=== PATIENT | male | born 1960 | race Caucasian/White ===

== ENCOUNTER 2020-01-24 16:39 | Emergency (ER) | payer BC ==
--- OUTSIDE RECORDS SUMMARY | 2020-01-24 16:43 | XMS REPORT | Continuity of Care Document ---
:1960 Author Organization [facility] Care Team Providers Name Role Phone [facility] Unavailable Un available Problems Problem Status Onset Classification Date Comments Sourc e Date Reported CHEST PAIN Active [facility] 4 Medications Medication Details Route Status Patient Ordering Order Source Instructions Provider Date Saline Flush 5 ml, Route: No MH 0.9% IVP, Drug [facility] Form: INJ, Active Dosing Weight 103.182, kg, Q12H, Start date: 11/04/13 21:00:00, Duration: 30 day, Stop date: 12/04/13 9:00:00(Same as: BD Posiflush) atropine 0.5 mg, 5 No MH mL, Route: [facility] IVP, Drug Active form: INJ, PRN, PRN Bradycardia, Start date: 11/04/13 20:18:00, Duration: 30 day, Stop date: 12/04/13 20:17:00 Saline Flush 5 ml, Route: No MH 0.9% IVP, Drug [facility] Form: INJ, Active Dosing Weight 103.182, kg, PRN, PRN Line Flush, Start date: 11/04/13 20:11:00, Duration: 30 day, Stop date: 12/04/13 20:10:00(Yunior e as: BD Posiflush) Nitroglycerin 0.4 mg, 1 No MH tab, Route: [facility] SL, Drug Active form: TAB, Q5Min, Dosing Weight 103.182, kg, PRN Chest Pain, Start date: 11/04/13 20:11:00, Duration: 3 doses or times, Stop date: Limited # of times(Same as:Nitroquic k, Nitrostat) "Do Not Crush" Sublingual tablet Allergies, Adverse Reactions, Alerts No Known Medication Allergies Immunizations No Data Provided for This Section Results Order Name Results Value Reference Date Interpretation Comments Parisa rce Range CARDIAC Total CK 104 12 - 191 ENZYMES 014 [facility] CARDIAC Troponin-I <0.02 0.00 - 0.40 ENZYMES 014 [facility] CARDIAC CK-MB <0.5 0.0 - 2.5 ENZYMES INDEX 014 [facility] CARDIAC CK MB <0.5 0.5 - 3.6 MH ENZYMES 014 [facility] CARDIAC CK-MB <0.3 0.0 - 2.5 ENZYMES INDEX 014 [facility] CARDIAC Troponin-I <0.02 0.00 - 0.40 ENZYMES 014 [facility] CARDIAC CK MB <0.5 0.5 - 3.6 ENZYMES 014 [facility] CARDIAC Total CK 151 12 - 191 ENZYMES 014 [facility] Pathology Reports No Data Provided for This Section Diagnostic Reports No Data Provided for This Section Consultation Notes No Data Provided for This Section Discharge Summaries No Data Provided for This Section History and Physicals No Data Provided for This Section Vital Signs Vital Sign Value Date Comments Source Systolic (mm Hg) 130 11/05/2013 [facility] [facility] Diastolic (mm Hg) 82 11/05/[address] [facility] st Temperature Oral (F) 97.8 F 11/05/2013 [facility] 65 11/05/2013 [facility] Rate 18 11/05/2013 [facility] Temperature Oral (F) 98.4 F 11/05/2013 [facility] Rate 66 11/05/2013 [facility] Rate 18 11/05/2013 [facility] Systolic (mm Hg) 130 11/05/2013 [facility] [facility] Diastolic (mm Hg) 74 11/05/[address] Diastolic (mm Hg) 77 11/05/[address] Systolic (mm Hg) 131 11/05/2013 [facility] Heart Rate 60 11/05/2013 [facility] Rate 18 11/05/2013 [facility] Temperature Oral (F) 98.0 F 11/05/2013 [facility] Weight 102.301 11/05/2013 [facility] BMI Calculated 35.32 11/05/2013 [facility] Height 170.18 cm 11/05/2013 [facility] BMI Calculated 35.63 11/05/2013 [facility] Height 170.18 cm 11/05/2013 [facility] Weight 103.182 11/05/2013 [facility] Encounters Location Location Encounter Encounter Reason Attending ADM DC Stat us Source Details Type Number For Provider Date Date Visit [facility] [id number] _MAPID: Nisheeth 11/05 11/05 T[facility] [id number] CHELSIE [place] /2013 [facility] [place] [facility] Patient [id number] [facility]38 Procedures No Data Provided for This Section Assessment and Plan No Data Provided for This Section Plan of Care No Data Provided for This Section Social History No Data Provided for This Section Family History No Data Provided for This Section Advance Directives No Data Provided for This Section Functional Status No Data Provided for This Section
[2020-01-24] MEDS ORDERED: ONDANSETRON 4 MG/2 ML VIAL ONE (18:58)
[2020-01-24] MEDS ORDERED: MORPHINE 4 MG/ML SYR ONE (18:58)
[2020-01-24] MEDS ORDERED: CEFAZOLIN/SWI 1gm 1 GM/10 ML SYR ONE (18:58)
[2020-01-24 19:04] LABS: Absolute Lymphocytes (CBC) 1.7 K/uL (0.7-4.9); Basophils % 0.8 % (0-1.3); Lymphocytes % 14.9 % (15.3-44.8); MPV 9.6 fL (7.6-11.3)
[2020-01-24 19:18] LABS: BUN Blood Urea Nitrogen 25 mg/dL (7-18); Bicarbonate 27 mmol/L (21-32); Glucose Level 104 mg/dL (74-106); Potassium 4.3 mmol/L (3.5-5.1); Sodium Level 141 mmol/L (136-145)
--- NOTE | 2020-01-24 19:32 | EDPHYS ---
Physician Documentation [facility] Name: Aram Mitchell Age: 59 yrs Sex: Male : 1960 Arrival Date: 01/24/2020 Time: 16:44 Bed 2 Private MD: ED Physician Sergo Gagnon HPI: 01/23 19:23 This 59 yrs old Male presents to ER via Ambulatory with complaints of Hand kb Injury. 19:23 The patient or guardian reports decreased range of motion, injury, pain, swelling, kb tenderness. The complaints affect the left index finger. Context: The problem was sustained at home, outdoors, resulted from finger went into a diesel fuel line spray. Onset: The symptoms/episode began/occurred yesterday. Modifying factors: The symptoms are alleviated by ice/coldpack to affected area, the symptoms are aggravated by movement. The patient has not experienced similar symptoms in the past. The patient has been recently seen by a physician: the ER physician, out of Town, with similar presenting complaints, X-rays were performed. 19:41 Associated signs and symptoms: The patient has no apparent associated signs or kb symptoms. Severity of symptoms: At their worst the symptoms were severe, in the emergency department the symptoms are unchanged. Pt reports he was working on his truck and a diesel fuel line that contains 20-30,000 psi was spraying. States second digit of left hand hit the sprayer. Has had pain and swelling since yesterday. Went to [facility] last night, x-ray was negative and they said there was nothing to do for it. Came in today because the swelling and pain has gotten worse, now it is developing areas of white, blisters, and he cannot bend it. . Historical: - Allergies: 16:59 steroids; ll1 - PSHx: 16:59 None; ll1 - Immunization history:: Flu vaccine is not up to date. - Social history:: Smoking status: Patient denies any tobacco usage or history of. Patient/guardian denies using alcohol, street drugs, IV drugs, tobacco products. ROS: 19:20 Constitutional: Negative for fever, chills, and weight loss, Cardiovascular: Negative kb for chest pain, palpitations, and edema, Respiratory: Negative for shortness of breath, cough, wheezing, and pleuritic chest pain, Abdomen/GI: Negative for abdominal pain, nausea, vomiting, diarrhea, and constipation, Back: Negative for injury and pain, Neuro: Negative for headache, weakness, numbness, tingling, and seizure. 19:20 MS/extremity: Positive for injury or acute deformity, decreased range of motion, erythema, pain, swelling, tenderness, of the left index finger. Exam: 19:20 Constitutional: This is a well developed, well nourished patient who is awake, alert, kb and in no acute distress. Head/Face: Normocephalic, atraumatic. Chest/axilla: Normal chest wall appearance and motion. Nontender with no deformity. No lesions are appreciated. Cardiovascular: Regular rate and rhythm with a normal S1 and S2. No gallops, murmurs, or rubs. Normal PMI, no JVD. No pulse deficits. Respiratory: Lungs have equal breath sounds bilaterally, clear to auscultation and percussion. No rales, rhonchi or wheezes noted. No increased work of breathing, no retractions or nasal flaring. Abdomen/GI: Soft, non-tender, with normal bowel sounds. No distension or tympany. No guarding or rebound. No evidence of tenderness throughout. Neuro: Awake and alert, GCS 15, oriented to person, place, time, and situation. Cranial nerves II-XII grossly intact. Motor strength 5/5 in all extremities. Sensory grossly intact. Cerebellar exam normal. Normal gait. 19:20 Musculoskeletal/extremity: Extremities: grossly normal except: noted in the left index finger: decreased ROM, erythema, pain, swelling, tenderness, cool to touch, pale, fusiform swelling, There is no evidence of FA involvement, ROM: limited active range of motion, in the left index finger, Perfusion: the extremity is cool, pale, noted to have sluggish capillary refill, left second digit only, Sensation intact. Vital Signs: 16:56 BP 171 / 91; Pulse 72; Resp 18; Temp 98.1; Pulse Ox 96% ; Weight 92.08 kg; Height 5 ft. ll1 7 in. (170.18 cm); Pain 9/10; 19:50 BP 185 / 89; Pulse 80; Resp 16; Pulse Ox 98% ; rr5 21:00 BP 166 / 85; Pulse 70; Resp 19; Pulse Ox 99% ; rr5 21:45 BP 178 / 95; Pulse 75; Resp 17; Pulse Ox 99% ; rr5 16:56 Body Mass Index 31.79 (92.08 kg, 170.18 cm) ll1 MDM: 18:28 Patient medically screened. kb 18:55 ED course: Transfer initiated by me to [facility]. . kb 19:05 ED course: Accepted for transfer to [facility], keep NPO, needs surgery. . rn 19:19 Data reviewed: vital signs, nurses notes. Data interpreted: Pulse oximetry: on room air kb is 96 %. Interpretation: normal. Counseling: I had a detailed discussion with the patient and/or guardian regarding: the historical points, exam findings, and any diagnostic results supporting the discharge/admit diagnosis, the need to transfer to another facility, for higher level of care, [facility] does not immediately have the required specialist. 19:30 ED course: Dr Segovia (hospitalist at [facility]) accepts pt for transfer. Dr yin Iqbal (hand specialist) accepts pt for consult. . 01/23 18:44 Order name: CBC with Diff; Complete Time: 19:17 kb 01/23 18:44 Order name: Basic Metabolic Panel; Complete Time: 19:19 kb 01/23 18:44 Order name: IV Start; Complete Time: 18:54 kb Administered Medications: 19:05 Drug: Ancef 1 grams Route: IVPB; Site: right antecubital; iw 20:57 Follow up: Response: No adverse reaction; IV Status: Completed infusion mg2 19:05 Drug: morphine 4 mg Route: IVP; Site: right antecubital; iw 20:57 Follow up: Response: No adverse reaction mg2 19:05 Drug: Zofran (Ondansetron) 4 mg Route: IVP; Site: right antecubital; iw 20:57 Follow up: Response: No adverse reaction mg2 20:57 Drug: Tetanus-Diphtheria Toxoid Adult 0.5 ml {Printmaker: [employer]). Exp: mg2 10/04/2021. Lot #: [id number]. } Route: IM; Site: right deltoid; 20:57 Follow up: Response: No adverse reaction mg2 21:49 Drug: fentaNYL (PF) 25 mcg {Note: rass 0.} Route: IVP; Site: right antecubital; rr5 21:49 Follow up: Response: Other; given upon transfer rr5 Disposition: 01/24 07:10 Co-signature as Attending Physician, Sergo Gagnon MD. rn Disposition: 01/24/20 19:31 Transfer ordered to [facility]. Diagnosis is High Pressure Injection Injury of second digit of left hand. - Reason for transfer: Higher level of care. - Accepting physician is Dr Segovia. - Condition is Stable. - Problem is new. - Symptoms are unchanged. Signatures: Dispatcher [employer] EDMS Isela Taylor, CIGARET[employer] LIGHTER REPAIRER-C CIGARET[employer] LIGHTER REPAIRER-Ckb eL Watson, RN RN iw Sergo Gagnon MD MD rn Gardose, Michele, RN RN mg2 Jose Raul Davis RN RN rr5 Connor Zepeda RN RN ll1 Corrections: (The following items were deleted from the chart) 01/23 19:06 19:05 ED course: Accepted by Dr. Mitchell, keep NPO, needs surgery. . rn rn 21:54 19:31 01/24/2020 19:31 Transfer ordered to [facility]. rr5 Diagnosis is High Pressure Injection Injury of second digit of left hand. Reason for transfer: Higher level of care. Accepting physician is Dr Segovia. Condition is Stable. Problem is new. Symptoms are unchanged. kb
--- NOTE | 2020-01-24 19:32 | ER ---
Nurse's Notes [facility] Name: Aram Mitchell Age: 59 yrs Sex: Male : 1960 Arrival Date: 01/24/2020 Time: 16:44 Bed 2 Private MD: Diagnosis: High Pressure Injection Injury of second digit of left hand Presentation: 01/23 16:56 Chief complaint: Patient states: High pressure diesel shot into left hand 2nd digit ll1 yesterday. Blister and swelling initially. X-ray negative at doctors office. Site is more red and swollen today. No fever. Coronavirus screen: Proceed with normal triage. Patient denies a cough. Patient denies shortness of breath or difficulty breathing. Patient denies measured and/or subjective temperature greater than 100.4F prior to today's visit. Patient denies travel on a cruise ship or to a country the [facility] currently lists as an affected area. Patient denies contact with known and/or suspected case of COVID-19. Ebola Screen: Patient denies travel to an Ebola-affected area in the 21 days before illness onset. Initial Sepsis Screen: Does the patient meet any 2 criteria? No. Patient's initial sepsis screen is negative. Does the patient have a suspected source of infection? No. Patient's initial sepsis screen is negative. Risk Assessment: Do you want to hurt yourself or someone else? Patient reports no desire to harm self or others. Onset of symptoms was January 23, 2020. 16:56 Method Of Arrival: Ambulatory ll1 16:56 Acuity: GUNNAR 3 ll1 Triage Assessment: 19:10 Injury Description: swelling. rr5 Historical: - Allergies: 16:59 steroids; ll1 - PSHx: 16:59 None; ll1 - Immunization history:: Flu vaccine is not up to date. - Social history:: Smoking status: Patient denies any tobacco usage or history of. Patient/guardian denies using alcohol, street drugs, IV drugs, tobacco products. Screenin:40 Abuse screen: Denies threats or abuse. Denies injuries from another. Nutritional iw screening: No deficits noted. Tuberculosis screening: No symptoms or risk factors identified. Fall Risk None identified. Assessment: 18:40 General: Appears in no apparent distress. Behavior is calm, cooperative. Pain: iw Complains of pain in dorsal aspect of distal phalanx of left ring finger, dorsal aspect of middle phalanx of left ring finger, dorsal aspect of proximal phalanx of left ring finger, palmar aspect of distal phalanx of left index finger, palmar aspect of middle phalanx of left index finger and palmar aspect of proximal phalanx of left index finger. Neuro: Level of Consciousness is awake, alert, obeys commands, Oriented to person, place, time, situation, Moves all extremities. Cardiovascular: Patient's skin is warm and dry. Respiratory: Respiratory effort is even, unlabored, Respiratory pattern is regular, symmetrical. GI: Derm: Skin is intact, is healthy with good turgor. Musculoskeletal: Range of motion: limited in DIP of left index finger and PIP of left index finger Swelling present in dorsal aspect of distal phalanx of left index finger, dorsal aspect of middle phalanx of left index finger, dorsal aspect of proximal phalanx of left index finger, palmar aspect of distal phalanx of left ring finger, palmar aspect of middle phalanx of left ring finger and palmar aspect of proximal phalanx of left ring finger. 19:50 Reassessment: Patient appears in no apparent distress at this time. No changes from rr5 previously documented assessment. Patient and/or family updated on plan of care and expected duration. Pain level reassessed. Patient is alert, oriented x 3, equal unlabored respirations, skin warm/dry/pink. 20:49 Reassessment: Patient appears in no apparent distress at this time. report given to lo Turk of [facility]. 21:51 Reassessment: Patient appears in no apparent distress at this time. Patient is alert, rr5 oriented x 3, equal unlabored respirations, skin warm/dry/pink. endorsed to EMS, awake, alert vitally stable , no complaints made. Vital Signs: 16:56 BP 171 / 91; Pulse 72; Resp 18; Temp 98.1; Pulse Ox 96% ; Weight 92.08 kg; Height 5 ft. ll1 7 in. (170.18 cm); Pain 9/10; 19:50 BP 185 / 89; Pulse 80; Resp 16; Pulse Ox 98% ; rr5 21:00 BP 166 / 85; Pulse 70; Resp 19; Pulse Ox 99% ; rr5 21:45 BP 178 / 95; Pulse 75; Resp 17; Pulse Ox 99% ; rr5 16:56 Body Mass Index 31.79 (92.08 kg, 170.18 cm) ll1 ED Course: 16:44 Patient arrived in ED. fj1 16:59 Triage completed. ll1 17:00 Arm band placed on. ll1 18:28 Isela [facility] FNP-C [facility]. kb 18:28 Sergo Gagnon MD is Attending Physician. kb 18:37 Le Watson, NAOMI is Primary Nurse. iw 18:40 Patient has correct armband on for positive identification. iw 18:52 Initial lab(s) drawn, by me, sent to lab. Inserted saline lock: 20 gauge in right dh3 antecubital area, using aseptic technique. Blood collected. 19:04 connected the hand surgeon director of business operations for [facility] with Dr. Gagnon for patient eb transfer consultation. 19:52 Delmy Cabrera, transferring coordinator gave room number and approval time. Accepting tt3 physician is Dr. Irina Segovia. Pt going to room 1615. Report to be called to [phone]. 21:49 No provider procedures requiring assistance completed. Patient transferred, IV remains rr5 in place. intact, No redness/swelling at site. Administered Medications: 19:05 Drug: Ancef 1 grams Route: IVPB; Site: right antecubital; iw 20:57 Follow up: Response: No adverse reaction; IV Status: Completed infusion mg2 19:05 Drug: morphine 4 mg Route: IVP; Site: right antecubital; iw 20:57 Follow up: Response: No adverse reaction mg2 19:05 Drug: Zofran (Ondansetron) 4 mg Route: IVP; Site: right antecubital; iw 20:57 Follow up: Response: No adverse reaction mg2 20:57 Drug: Tetanus-Diphtheria Toxoid Adult 0.5 ml {Motion Graphics Artist: [employer]. Exp: mg2 10/04/2021. Lot #: [id number]. } Route: IM; Site: right deltoid; 20:57 Follow up: Response: No adverse reaction mg2 21:49 Drug: fentaNYL (PF) 25 mcg {Note: rass 0.} Route: IVP; Site: right antecubital; rr5 21:49 Follow up: Response: Other; given upon transfer rr5 Intake: Outcome: 19:31 ER care complete, transfer ordered by MD. esqueda 21:49 Transferred by ground EMS to [facility], [facility] [place], Transfer form completed. rr5 21:49 Condition: stable 21:49 Instructed on the need for transfer. 21:54 Patient left the ED. rr5 Signatures: Isela Taylor, POLISHER BRASS-C POLISHER BRASS-Le Niño, RN RN Ashley Chacon 3 Tran Ni Michele, RN RN [facility] Jose Raul Davis RN RN rr5 Arthur Franklin fj1 Connor Zepeda RN RN ll1 Cononr Mcfarland tt3 Corrections: (The following items were deleted from the chart) 18:44 16:56 Chief complaint: Patient states: High pressure diesel shot into left hand 2nd ll1 digit. Blister and swelling initially. X-ray negative. Site is more red and swollen today. No fever ll1
[2020-01-24] MEDS ORDERED: TETANUS & DIPHTHERIA TOX,ADULT 0.5 ML VIAL ONE (20:37)
[2020-01-24] MEDS ORDERED: FENTANYL CITR 100 MCG/2 ML ONE (20:38)
[2020-01-24 22:04] VITALS: TEMP 98.1
[2020-01-24 22:07] VITALS: O2SAT 99
[2020-01-24 22:09] VITALS: BP 178/95
[2020-02-02] MEDS ORDERED: IBUPROFEN 400 MG TAB ONE (18:48)
== END 2020-01-24 21:54 | disposition short-term general hospital (02) ==
LOC: ER 16:39
DX: S69.92XA Unspecified injury of left wrist, hand and finger(s), initial encounter (principal); T70.4XXA Effects of high-pressure fluids, initial encounter; X58.XXXA Exposure to other specified factors, initial encounter; Y92.018 Other place in single-family (private) house as the place of occurrence of the external cause
CPT/HCPCS: 96365; 85025; 80048; 36415; 90471; 90714; 96375; 99285; 96366; J3010; J0690; J2405

== ENCOUNTER 2024-06-11 10:40 | Day surgery (SDC) | payer BC ==
[2024-06-04 15:25] LABS: Absolute Eosinophils 0.3 K/uL (0-0.5); Absolute Lymphocytes (CBC) 1.5 K/uL (0.7-4.9); Absolute Monocytes 0.8 K/uL (0.1-1.3); Absolute Neutrophil 3.8 K/uL (1.8-8.0); Basophils % 0.7 % (0-1.3); Eosinophils % 4.1 % (0-4.4); Hematocrit 43.4 % (39.6-49.0); Hemoglobin 14.4 g/dL (13.6-17.9); Lymphocytes % 23.1 % (15.3-44.8); MCH 30.6 pg (27.0-35.0); MCHC 33.2 g/dL (32.0-36.0); MCV 92.2 fL (80-100); MPV 9.4 fL (7.6-11.3); Monocytes % 12.5 % (3.3-12.3); Neutrophils % 59.6 % (41.7-73.7); Platelets 161 thou/uL (152-406); RBC Red Blood Cell Count 4.71 M/uL (4.33-5.43); Red Cell Distribution Width 13.8 % (12.1-15.2)
[2024-06-04 15:26] LABS: PT Prothrombin Time 11.5 SECONDS (9.4-12.5); Protime INR 1.03
[2024-06-04 15:37] LABS: Anion Gap 7.1 mEq/L (5.0-15.0); Potassium 4.1 mEq/L (3.5-5.1)
[2024-06-11] MEDS: Ringers Lactate 1,000 ML IV ONE (11:35)
[2024-06-11] MEDS ORDERED: Gentamicin Inj 240 MG in NA CHLORIDE 0.9% 100 ML IV ONE (14:15)
[2024-06-11] MEDS ORDERED: FENTANYL CITR 250 MCG/5 ML ONE (15:40)
[2024-06-11] MEDS ORDERED: propofoL 200 MG/20 ML VIAL IV ONE (15:40)
[2024-06-11] MEDS ORDERED: ONDANSETRON 4 MG/2 ML VIAL ONE (15:40)
[2024-06-11] MEDS ORDERED: MIDAZOLAM HCL 2 MG/2 ML INJ ONE (15:40)
[2024-06-11] MEDS ORDERED: LIDOCAINE 1% MPF 5 ML VIAL ONE (15:40)
[2024-06-11] MEDS: AMPICILLIN SODIUM 2 GM/VIAL VIAL ONE (16:05)
[2024-06-11] MEDS ORDERED: GLYCOPYRROLATE 0.2 MG/ML SYR ONE (16:26)
[2024-06-11] MEDS ORDERED: HYDROCODONE/APAP 5/325 MG TAB PO PRN (17:27)
[2024-06-11] MEDS ORDERED: OXYBUTYNIN ER 5 MG TAB PO ONE (17:27)
[2024-06-11] MEDS ORDERED: PHENAZOPYRIDINE 100MG TAB PO ONE (17:27)
--- NOTE | 2024-06-11 17:34 | P.OP ---
Date of Service: 06/11/24 Preoperative diagnosis: BPH with LUTS Postoperative diagnosis: BPH with LUTS Principal procedure: Bipolar TURP (transurethral resection of the prostate) Indication for procedure: 64-year-old gentleman with LUTS refractory to medical therapy who has elected to proceed with surgical therapy for a slightly larger than 100 g gland. Procedure note: The patient was consented in the preoperative holding area before being transferred to the operative suite where general anesthesia was induced. He was placed in the lithotomy position, but of note, there was some difficulty achieving ideal positioning because of slight abnormalities between his hip and foot such that it would be to sit properly within the [facility] stirrups. Ultim ately, I was able to position them with avoidance of any pressure points along the calf or peroneal nerve. His genitalia was then prepped with Hibiclens and draped in standard fashion. I utilized urethral sounds to dilate the his meatus and fossa navicularis to 30 Telugu. Then using a visual obturator and the 26 Telugu resectoscope sheath, I traversed his urethra and entered his bladder navigating past a significant elevation of the median bar with mild intravesical projecting median lobe abutting the trigone and significant interdigitating lateral lobar hypertrophy. As a result, I began the resection by marking the area abutting the ureteral orifices within the bladder neck using fulguration. I then resected the median bar in between and then level at the bladder neck with the trigone. I then extended that resection to create a smooth trough from the bladder neck down to the verumontanum. Once this had been created, I then continued the resection to involve the patient's left lateral lobe starting at the bladder neck extending from posterior to anterior. I then extended that resection into the mid zone of the prostate from posterior to anterior before ultimately resecting at the apical most portion of the intraluminally projecting lateral lobar hypertrophy from posterior to anterior. I similarly turned my attention to the patient's right side and began the resection in a similar fashion at the bladder neck extending into the mid zone of the prostate before resecting the apical intruding tissue. Ilich evacuation was used to remove prostate chips from within his bladder and to flush out any blood as needed throughout the procedure. Fulguration was performed throughout the resection process in order to maintain a degree of hemostasis. I then continued the resection with his bladder decompressed so that I could see how much of the adenoma was indeed intraluminally projecting without the fluid distention associated with a full bladder. Resection was performed throughout the prostatic fossa from the bladder neck all the way till the apex until the apical tissue was no longer kissing and a widely patent channel was present from the verumontanum into the bladder neck. The bladder neck itself was also widely opened. I then carefully fulgurated any and all bleeding vessels and ensured all prostate chips had been removed either using the Ilich or direct visualization. Once all prostate chips were gone and with his bladder completely decompressed, I searched for bleeding without any fluid and flow, and I fulgurated any oozing venous vessels. Once co mpletely hemostatic with the bladder decompressed and no fluid inflow, I then remove the scope visualizing the channel on the way out to ensure no additional prostate chips were present, and I refilled his bladder with saline before placing a 22 Telugu three-way Villar catheter into his bladder with ease. 30 cc of sterile water was placed in the balloon. The patient was then taken out of the lithotomy position, and I secured the catheter to his left lower thigh with a degree of traction using tape. Slow drip CBI with normal saline was provided, and the drainage was minimally pink. As a result, the patient was awakened from general anesthesia, transferred to a stretcher, and then transferred to the recovery room in good condition. Complications: None Discharge disposition: He will be standard TURP pathway for follow-up with a voiding trial intended on Monday and subsequent follow-up with me in 3 months. The patient was given a prescription for Bactrim DS for 3 days to cover him through the voiding trial.
[2024-06-11 19:00] VITALS: BP 176/83; TEMP 96.6; O2SAT 96
== END 2024-06-11 18:48 | disposition home or self-care (01) ==
LOC: OR 10:40
PROVIDERS: ATTEND Urology
PROC: 0VT08ZZ Resection of Prostate, Via Natural or Artificial Opening Endoscopic (ICD-10-PCS; principal; 2024-06-11 12:45)
DX: N40.1 Benign prostatic hyperplasia with lower urinary tract symptoms (principal); R97.20 Elevated prostate specific antigen [PSA]
CPT/HCPCS: 87088; 85025; 87086; 80048; 36415; 85610; 52601; J2704; J2001; J1580; J2250; J3010; J2405; J0290; J7120; 88305